=== PATIENT | male | born 1965 | race Caucasian/White ===

== ENCOUNTER 2025-10-16 17:38 | Outpatient (CLI) | payer OTHER | END 2025-10-16 17:54 | disposition home or self-care (01) | LOC: LAB 17:38 | PROVIDERS: ATTEND Urology | DX: R97.20 Elevated prostate specific antigen [PSA] (principal) ==

== ENCOUNTER 2025-10-25 07:14 | Outpatient (CLI) | payer OTHER | END 2025-10-25 07:17 | disposition home or self-care (01) | LOC: SONOGRAMA 07:14 | PROVIDERS: ATTEND Urology | DX: C61 Malignant neoplasm of prostate (principal); N40.1 Benign prostatic hyperplasia with lower urinary tract symptoms; R97.20 Elevated prostate specific antigen [PSA] ==